=== PATIENT | male | born 1955 | race Caucasian/White ===

== ENCOUNTER 2022-07-11 13:20 | Outpatient (CLI) | payer MEDICARE, BC | END 2022-07-11 13:21 | disposition home or self-care (01) | LOC: BICCT 13:20 | PROVIDERS: ATTEND Internal Medicine | DX: Z12.2 Encounter for screening for malignant neoplasm of respiratory organs (principal); Z87.891 Personal history of nicotine dependence | CPT/HCPCS: 71271 ==

== ENCOUNTER 2024-03-03 08:01 | Outpatient (CLI) | payer MEDICARE, BC | END 2024-03-03 08:02 | disposition home or self-care (01) | LOC: BICULT 08:01 | PROVIDERS: ATTEND Internal Medicine Gastroenterology | DX: K74.60 Unspecified cirrhosis of liver (principal); E83.119 Hemochromatosis, unspecified; R16.1 Splenomegaly, not elsewhere classified | CPT/HCPCS: 76705 ==

== ENCOUNTER 2024-03-03 08:44 | Outpatient (CLI) | payer MEDICARE, BC | END 2024-03-03 08:45 | disposition home or self-care (01) | LOC: BICCT 08:44 | PROVIDERS: ATTEND Otolaryngology Otolaryngic Allergy | DX: E83.119 Hemochromatosis, unspecified (principal); K74.60 Unspecified cirrhosis of liver; I72.8 Aneurysm of other specified arteries | CPT/HCPCS: 70487; 82565 ==

== ENCOUNTER 2025-01-15 14:16 | Outpatient (CLI) | payer MEDICARE, BC | END 2025-01-15 14:17 | disposition home or self-care (01) | LOC: BICCT 14:16 | PROVIDERS: ATTEND Internal Medicine | DX: Z12.2 Encounter for screening for malignant neoplasm of respiratory organs (principal); Z87.891 Personal history of nicotine dependence | CPT/HCPCS: 71271 ==